=== PATIENT | female | born 2000 | race Caucasian/White ===

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

== ENCOUNTER 2022-06-01 11:20 | Emergency (ER) | payer MEDICAID, SELFPAY ==
[2022-06-01 11:22] VITALS: BP 140/85; PULSE 127; RESP 14; TEMP 36.2; O2SAT 98; BMI 18.3
--- NOTE | 2022-06-01 11:30 | EDS_ITS ---
HPI HPI - Female History of Present Illness Chief Complaint: Female C/O Detail of Chief Complaint: Concern for STD Informant: patient Narrative Narrative: Patient presents to the emergency department with concern for chlamydia. Patient states that the sexual partner she recently had had a sexual partner that was diagnosed with chlamydia. Patient's been having vaginal discharge and burning with urination for about 3 to 4 days. She is not had any fevers. Patient has minimal lower abdominal discomfort. She does have prior history of gonorrhea. Prior similar symptoms: No PFSH PFSH Home Medications fluoxetine 20 mg capsule 20 mg PO DAILY 06/01/22 [History Last Taken Unknown] lamotrigine 25 mg tablet 125 mg PO DAILY 06/01/22 [History Last Taken Unknown] Allergy/AdvReac Type Severity Reaction Status Date / Time No Known Allergies Allergy Verified 06/01/22 11:21 Social History Smoking Status: Never smoker ROS ROS ED Review of Systems ROS Unobtainable: other Constitutional Constitutional ED: Reports lethargy; Denies chills, fever(s), sweats or weight loss Eyes Eyes: Denies blurry vision, change in vision or diplopia ENT ENT ED: Denies rhinorrhea or sore throat Cardiovascular Cardiovascular: Reports chest pain and racing heartbeat; Denies orthopnea Respiratory/Chest Respiratory/Chest: Reports dyspnea and dyspnea on exertion; Denies cough, orthopnea or sputum Gastrointestinal Gastrointestinal: Denies abdominal pain, diarrhea, nausea or vomiting Genitourinary Genitourinary ED: Reports dysuria and other Details: Vaginal discharge ; Denies hematuria or urinary frequency Musculoskeletal Musculoskeletal: Denies arthralgias, back pain, myalgias or neck pain Integumentary Denies abscess, Abrasions or rash Neurologic Neurologic: Denies headache(s) or weakness Psychiatric Psychiatric: Denies anxiety, depression or suicidal thoughts Endocrine Endocrinology: Denies polydipsia, polyphagia or polyuria Hematologic/Lymphatic Hematologic/Lymphatic: Denies easy bleeding, easy bruising or lymphadenopathy Allergic/Immunologic Allergic/Immunologic ED: Denies mouth swelling, tongue swelling or urticaria EXAM Physical Exam Const Vital Signs: 06/01/22 11:22 Temperature 97.2 F L Temperature Source Temporal Pulse Rate 127 H Respiratory Rate 14 Blood Pressure 140/85 H Blood Pressure Mean 103 Pulse Ox 98 Positive well nourished and well developed General Appearance ED: well developed and NAD HEENT Reports TM's clear and moist mucous membranes normocephalic and atraumatic; Negative for trauma or tenderness Tympanic Membrane ED: Yes TM's clear Eyes PERRL and EOMs intact bilaterally General Eye ED: Negative for pale conjunctiva or scleral icterus Neck no lymphadenopathy, supple and no JVD General: Negative for tenderness Chest Wall inspection of chest normal and palpation of chest normal Chest: Negative for tenderness Resp normal respiratory effort and clear to auscultation bilaterally Effort and Inspection: Negative for respiratory distress or pain with movement Auscultation: Negative for rhonchi, wheezes or diminished lung sounds Cardio regular rate, regular rhythm, S1 normal heart sound, S2 normal heart sound and no murmurs Peripheral Pulses: pulses 2+ throughout GI normal to inspection, nondistended, normoactive bowel sounds, soft to palpation, non-tender, non-distended and no masses Back/Spine no CVA tenderness and no thoracic nor lumbar tenderness Extremity normal to inspection General Extremety ED: Negative for edema General Extremity: Negative for edema Neuro oriented x3, CN's II-XII intact bilaterally, no sensory deficits noted and gait normal Sensorium / Orientation: awake, alert, oriented to person, oriented to place and oriented to time Motor Exam: strength 5/5 throughout and strength abnormal Psych mental status grossly normal Skin no rashes or lesions noted and no wounds MDM MDM MDM Narrative Medical decision making narrative: Patient will be treated for chlamydia and gonorrhea with Rocephin and Zithromax. Urine was sent for gonorrhea and chlamydia testing. Patient to follow-up with primary care physician pediatric orthodontist for no doc within next 3 to 5 days. Discharge Plan Triage Chief Complaint: Female C/O ED Provider: Stacie Landers Dx/Rx/DC Orders Clinical Impression: Chlamydia contact, treated Instructions: Urethritis in Women, ED Testing for Suspected STI Prescriptions: No Action lamotrigine 25 mg tablet 125 mg PO DAILY Label Comments: TAKE 4 TABLETS BY MOUTH ONCE DAILY fluoxetine 20 mg capsule 20 mg PO DAILY Label Comments: TAKE 1 CAPSULE BY MOUTH ONCE DAILY Primary Care Provider: Care Physician,No Primary Referrals: Carlos Manuel Manriquez MD [Med Staff - Exterior Work Helper] - 3-5 Days Care Physician,No Primary [Primary Care Provider] - Disposition Disposition: Home, Self Care
[2022-06-01] MEDS: Azithromycin 250 MG Tablet 1000 MG PO (12:32)
[2022-06-01] MEDS: Ceftriaxone 500 MG Vial 250 MG IM (12:32)
[2022-06-01 14:17] LABS: Chlamydia Trachomatis by PCR POSITIVE (Negative); Neisserai gonorrhoeae by PCR Negative (Negative); Probe Check PASS; Sample Adequacy Control PASS; Specimen Processing Control PASS
== END 2022-06-01 12:40 | disposition home or self-care (01) ==
PROVIDERS: Emergency Provider Emergency Medicine; Visit Provider Emergency Medicine
DX: Z20.2 Contact with and (suspected) exposure to infections with a predominantly sexual mode of transmission (principal); N89.8 Other specified noninflammatory disorders of vagina; R30.9 Painful micturition, unspecified; Z87.42 Personal history of other diseases of the female genital tract
CPT/HCPCS: 87491; 87591; 96372; 99283